=== PATIENT | male | born 1995 | race African-American/Black ===

== ENCOUNTER 2017-10-18 15:07 | Emergency (ER) | payer OTHER ==
[~2017-10-18] VITALS: Ht 182.9 cm; Wt 90.7 kg
[~2017-10-18 15:07] MED LIST: ZYRTEC10 MG PO
== END 2017-10-18 20:48 | disposition home or self-care (01) ==
LOC: ER 15:07
DX: R10.84 Generalized abdominal pain (principal)

== ENCOUNTER → 2017-11-19 | Outpatient (CLI) | payer OTHER ==
[~2017-11-19] VITALS: Ht 182.9 cm; Wt 86.2 kg
== END | disposition home or self-care (01) ==
LOC: PPHC 09:44
DX: Z00.8 Encounter for other general examination (principal)

== ENCOUNTER → 2018-02-16 | Outpatient (CLI) | payer OTHER | END | disposition home or self-care (01) | LOC: LAB 11:25 | DX: A64 Unspecified sexually transmitted disease (principal); R51 Headache; R10.9 Unspecified abdominal pain ==

== ENCOUNTER 2018-02-17 10:12 | Outpatient (CLI) | payer OTHER | END 2018-02-17 15:00 | disposition home or self-care (01) | LOC: SONOGRAMA 10:12 | DX: R10.84 Generalized abdominal pain (principal) ==

== ENCOUNTER 2018-09-07 14:36 | Outpatient (CLI) | payer OTHER ==
[~2018-09-07] VITALS: Ht 182.9 cm; Wt 88.5 kg
== END 2018-09-07 15:05 | disposition home or self-care (01) ==
LOC: OFIC 805 14:36
DX: H90.3 Sensorineural hearing loss, bilateral (principal); H61.23 Impacted cerumen, bilateral; M26.69 Other specified disorders of temporomandibular joint

== ENCOUNTER 2018-10-01 10:02 | Outpatient (CLI) | payer OTHER ==
[~2018-10-01] VITALS: Ht 182.9 cm; Wt 88.5 kg
== END 2018-10-01 10:15 | disposition home or self-care (01) ==
LOC: OFIC 805 10:02
DX: M26.69 Other specified disorders of temporomandibular joint (principal); H91.8X3 Other specified hearing loss, bilateral; M62.838 Other muscle spasm

== ENCOUNTER 2023-12-02 08:22 | Outpatient (CLI) | payer OTHER | END 2023-12-02 08:30 | disposition home or self-care (01) | LOC: RAD 08:22 | PROVIDERS: ATTEND Internal Medicine | DX: I10 Essential (primary) hypertension (principal); Z01.810 Encounter for preprocedural cardiovascular examination; D57.1 Sickle-cell disease without crisis; D50.8 Other iron deficiency anemias; D53.0 Protein deficiency anemia; D51.9 Vitamin B12 deficiency anemia, unspecified ==